=== PATIENT | female | born 1970 ===

== ENCOUNTER → 2022-04-01 | Outpatient (CLI) | payer OTHER ==
[~2022-04-01] MED LIST: GILTUSS TR TAB1 EACH PO; ZYRTEC10 M2 PO
== END | disposition home or self-care (01) ==
LOC: SONOGRAMA 08:39
PROVIDERS: ATTEND Pathology Anatomic Pathology & Clinical Pathology
DX: E04.1 Nontoxic single thyroid nodule (principal)